=== PATIENT | male | born 2000 | race Caucasian/White ===

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

== ENCOUNTER 2022-03-21 12:46 | Emergency (ER) | payer MEDICAID, OTHER ==
[~2022-03-21] VITALS: Ht 160 cm; Wt 79.0 kg
[~2022-03-21 12:46] MED LIST: IBUP-2029 MT
[2022-03-21] MEDS ORDERED: HYDROCODONE/ACETAMINOPHEN 5/325MG TABLET PO ONE (15:45)
[2022-03-21] MEDS ORDERED: AMOXICILLIN 500 MG CAPSULE PO ONE (15:45)
[2022-03-21] MEDS ORDERED: AMOX-494 MT (15:52)
[2022-03-21] MEDS ORDERED: IBUP-2029 MT (15:52)
[2022-03-21] MEDS ORDERED: T3 PO (15:52)
[2022-03-21 16:27] VITALS: BP 137/73
[2022-03-22] MEDS ORDERED: ALPR2TAB97 MT (13:45)
== END 2022-03-21 16:28 | disposition home or self-care (01) ==
LOC: ER 12:46
DX: K08.89 Other specified disorders of teeth and supporting structures (principal)
CPT/HCPCS: 99283

== ENCOUNTER 2022-03-22 08:39 | Emergency (ER) | payer OTHER ==
[~2022-03-22] VITALS: Ht 177.8 cm; Wt 75.0 kg
[~2022-03-22 08:39] MED LIST changes: +AMOX-494 MT; +T3 PO
[2022-03-22 08:50] VITALS: BP 108/61
[2022-03-22] MEDS ORDERED: LORAZEPAM 1MG TABLET PO ONE (11:30)
[2022-03-22] MEDS ORDERED: ALPRAZOLAM 0.25 MG TABLET PO SCH (12:00)
[2022-03-22] MEDS ORDERED: ALPRAZOLAM 0.5 MG TABLET PO ONE (12:00)
[2022-03-22 12:11] LABS: BASOPHILS % 0.3 % (0.0-2.0); EOSINOPHILS % 0.8 % (0.0-5.0); HEMATOCRIT. 46.5 % (42.0-52.0); HEMOGLOBIN. 15.9 g/dL (14.0-18.0); MEAN CORPUSCULAR HEMOGLOBIN 31.6 pg (28.0-32.0); MEAN CORPUSCULAR VOLUME 92.3 fL (80.0-94.0); MEAN PLATELET VOLUME 7.8 fl (7.4-10.4); MONOCYTES % 7.3 % (2.0-8.0); NEUTROPHILS % 70.6 % (40.0-76.0); PLATELET 239 x1000/uL (130-400); RED BLOOD CELL COUNT 5.04 mill/uL (4.7-6.1); RED CELL DISTRIBUTION WIDTH 13.8 % (11.6-14.6)
[2022-03-22 12:23] LABS: CHLORIDE 102 mEq/L (98-107)
[2022-03-22 12:28] LABS: CLARITY URINE CLEAR (CLEAR); COLOR URINE YELLOW (YELLOW); KETONES URINE TRACE (NEGATIVE); LEUKOCYTE ESTERASE URINE NEGATIVE (NEGATIVE); NITRITE URINE NEGATIVE (NEGATIVE); OCCULT BLOOD URINE NEGATIVE (NEGATIVE); PH URINE 6.5 (4.5-8.0); PROTEIN URINE NEGATIVE (NEGATIVE); SPECIFIC GRAVITY URINE 1.011 (1.005-1.030); UROBILINOGEN URINE 0.2 E.U./dL (0.2-1.0)
[2022-03-22 12:32] LABS: ETHANOL BLOOD < 10 mg/dL
[2022-03-22] MEDS ORDERED: ALPR2TAB97 MT (13:45)
[2022-03-22 13:51] LABS: *AMPHETAMINES SCREEN URINE PRESUMTIVE POSITIVE (NEGATIVE); *BARBITURATES SCREEN URINE NEGATIVE (NEGATIVE); *BENZODIAZEPINES SCREEN URINE PRESUMTIVE POSITIVE (NEGATIVE); *COCAINE SCREEN URINE NEGATIVE (NEGATIVE); CANNABINOID URINE SCREEN PRESUMTIVE POSITIVE (NEGATIVE); METHADONE URINE SCREEN NEGATIVE (NEGATIVE); OPIATES URINE SCREEN PRESUMTIVE POSITIVE (NEGATIVE); PHENCYCLIDINE URINE SCREEN NEGATIVE (NEGATIVE)
== END 2022-03-22 14:08 | disposition home or self-care (01) ==
LOC: ER 08:39
DX: F41.9 Anxiety disorder, unspecified (principal)
CPT/HCPCS: 36415; 80053; 80305; 80307; 80320; 80329; 81003; 85025; 99283; G0480

== ENCOUNTER 2022-05-09 13:22 | Emergency (ER) | payer MEDICAID, OTHER ==
[~2022-05-09] VITALS: Ht 177.8 cm; Wt 73.0 kg
[~2022-05-09 13:22] MED LIST changes: +ALPR2TAB97 MT
[2022-05-09] MEDS ORDERED: KETOROLAC 30MG/ML VIAL IV STA (13:38)
[2022-05-09] MEDS ORDERED: LEVETIRACETAM 1000MG PREMIX 100 ML IV ONE (13:45)
[2022-05-09 14:09] VITALS: BP 112/75
[2022-05-09 14:19] LABS: BASOPHILS % 0.4 % (0.0-2.0); EOSINOPHILS % 2.5 % (0.0-5.0); HEMOGLOBIN. 15.3 g/dL (14.0-18.0); LYMPHOCYTES % 12.1 % (20.0-50.0); MEAN CORPUSCULAR HEMOGLOBIN 31.4 pg (28.0-32.0); MEAN CORPUSCULAR VOLUME 92.6 fL (80.0-94.0); MONOCYTES % 5.8 % (2.0-8.0); NEUTROPHILS % 79.2 % (40.0-76.0); RED BLOOD CELL COUNT 4.86 mill/uL (4.7-6.1); RED CELL DISTRIBUTION WIDTH 14.6 % (11.6-14.6)
[2022-05-09 14:24] LABS: CHLORIDE 107 mEq/L (98-107)
[2022-05-09 14:36] LABS: CLARITY URINE CLEAR (CLEAR); COLOR URINE YELLOW (YELLOW); KETONES URINE TRACE (NEGATIVE); LEUKOCYTE ESTERASE URINE 1+ (NEGATIVE); NITRITE URINE NEGATIVE (NEGATIVE); OCCULT BLOOD URINE TRACE (NEGATIVE); PROTEIN URINE 1+ (NEGATIVE); SPECIFIC GRAVITY URINE 1.017 (1.005-1.030); UROBILINOGEN URINE 0.2 E.U./dL (0.2-1.0)
[2022-05-09 14:43] LABS: ETHANOL BLOOD < 10 mg/dL
[2022-05-09 15:10] LABS: *AMPHETAMINES SCREEN URINE NEGATIVE (NEGATIVE); *BARBITURATES SCREEN URINE NEGATIVE (NEGATIVE); *BENZODIAZEPINES SCREEN URINE PRESUMTIVE POSITIVE (NEGATIVE); *COCAINE SCREEN URINE NEGATIVE (NEGATIVE); CANNABINOID URINE SCREEN PRESUMTIVE POSITIVE (NEGATIVE); METHADONE URINE SCREEN NEGATIVE (NEGATIVE); OPIATES URINE SCREEN NEGATIVE (NEGATIVE); PHENCYCLIDINE URINE SCREEN NEGATIVE (NEGATIVE)
[2022-05-09 15:21] LABS: MEAN PLATELET VOLUME 8.6 fl (7.4-10.4); PLATELET 254 x1000/uL (130-400)
[2022-05-09] MEDS ORDERED: KEPP500 MT (15:48)
== END 2022-05-09 16:22 | disposition home or self-care (01) ==
LOC: ER 13:22
DX: G40.909 Epilepsy, unspecified, not intractable, without status epilepticus (principal)
CPT/HCPCS: 36415; 70450; 80053; 80305; 80320; 81003; 85025; 96365; 96375; 99284; J1885; J1953; G0480